=== PATIENT | female | born 1960 | race Caucasian/White ===

== ENCOUNTER → 2020-05-01 | Outpatient (CLI) | payer OTHER ==
[~2020-05-01] MED LIST: ACETAMINOPHEN325 MG PO; B COMPLEX1 EACH PO; DAILY VITAMIN1 EAC2 PO; DOXYCYCLINE HY100 MG PO; PROTONIX40 MG PO; PULMICORT0.5 MG/2 M INH; VENTOLIN HFA 66.7 GM INH; VITAMIN C1000 MG PO; VITAMIN D350 MC3 PO
== END ==
LOC: EXRD 08:09
DX: R19.00 Intra-abdominal and pelvic swelling, mass and lump, unspecified site (principal)
CPT/HCPCS: 76705

== ENCOUNTER → 2020-05-05 | Day surgery (SDC) | payer OTHER | END | disposition home or self-care (01) | LOC: OR 05:56 | DX: Z12.11 Encounter for screening for malignant neoplasm of colon (principal); K57.30 Diverticulosis of large intestine without perforation or abscess without bleeding; D17.1 Benign lipomatous neoplasm of skin and subcutaneous tissue of trunk; M54.5 Low back pain; M54.2 Cervicalgia; I10 Essential (primary) hypertension; E78.5 Hyperlipidemia, unspecified; Z86.010 Personal history of colon polyps; Z87.19 Personal history of other diseases of the digestive system; Z88.1 Allergy status to other antibiotic agents; Z86.16 Personal history of COVID-19; Z87.891 Personal history of nicotine dependence | CPT/HCPCS: J2704; J7030 ==

== ENCOUNTER → 2021-09-25 | Outpatient (CLI) | payer OTHER | LOC: MAMO 14:58 | DX: Z12.31 Encounter for screening mammogram for malignant neoplasm of breast (principal) | CPT/HCPCS: 77063; 77067 ==